=== PATIENT | male | born 1980 | race Hispanic/Latino ===

== ENCOUNTER 2021-11-25 19:31 | Emergency (ER) | payer OTHER ==
[~2021-11-25] VITALS: Ht 165.1 cm; Wt 72.1 kg
[2021-11-25 19:34] VITALS: BP 112/67
[2021-11-25] MEDS ORDERED: TETANUS/DIPHTHERIA TOXOID [ADULT] 0.5 ML VIAL IM ONE (20:00)
[2021-11-25] MEDS ORDERED: LIDOCAINE HCL 1% 20 ML VIAL INJ SCH (20:30)
== END 2021-11-25 21:46 | disposition home or self-care (01) ==
LOC: EDH 19:31 → EDSEX 19:31 → EDH 21:46
DX: S81.811A Laceration without foreign body, right lower leg, initial encounter (principal); X58.XXXA Exposure to other specified factors, initial encounter; Y93.89 Activity, other specified; Y92.89 Other specified places as the place of occurrence of the external cause; Y99.8 Other external cause status
CPT/HCPCS: 12002; 90471; 90714